=== PATIENT | female | born 1930 | race Caucasian/White ===

== ENCOUNTER 2016-03-03 19:56 | Inpatient (IN) | payer MEDICARE ==
[~2016-03-03] VITALS: Ht 160 cm; Wt 88.1 kg
[2016-03-04] MEDS ORDERED: SODIUM CHLORIDE 0.9% 1,000 ML ONE ×2 (00:47→03:22)
[2016-03-04] MEDS ORDERED: SODIUM CHLORIDE 0.9% 1,000 ML IV SCH (01:20)
[2016-03-04] MEDS ORDERED: SALINE FLUSH 10 ML FLUSH PRN (01:20)
[2016-03-04 03:00] VITALS: BP_SYST 140; RESP 18; TEMP 96.8
[2016-03-04] MEDS: SALINE FLUSH 10 ML FLUSH SCH ×3 (04:13→22:14)
[2016-03-04] MEDS: METRONIDAZOLE 500MG/100ML 100 ML IV SCH ×4 (04:14→17:30)
[2016-03-04 05:27] VITALS: Ht 160 cm; Wt 88.1 kg
[2016-03-04] MEDS: SODIUM CHLORIDE 0.9% FLUSH BAG 500 ML IV SCH (05:43)
[2016-03-04] MEDS: LEVOTHYROXINE 0.088 MG TAB PO SCH (06:14)
[2016-03-04] MEDS: SUCRALFATE 1 GM TAB PO SCH ×4 (06:14→21:00)
[2016-03-04 07:27] VITALS: BP_SYST 138; RESP 16; TEMP 96.8
[2016-03-04] MEDS: AMIODARONE 200 MG TAB PO SCH (08:14)
[2016-03-04] MEDS: METOPROLOL TART 25 MG TAB PO SCH ×2 (08:14→22:14)
[2016-03-04] MEDS ORDERED: CEFTRIAXONE 1 GM in SODIUM CHLORIDE 0.9% 50 ML IV SCH (09:00)
[2016-03-04 10:57] VITALS: BP_SYST 108; RESP 16; TEMP 97.5
[2016-03-04] MEDS: SODIUM CHLORIDE 0.9% 1,000 ML IV SCH (14:44)
[2016-03-04 15:24] VITALS: BP_SYST 124; RESP 18; TEMP 97.4
[2016-03-04] MEDS: METRONIDAZOLE 500 MG TAB PO SCH ×2 (17:40→22:14)
[2016-03-04 20:21] VITALS: BP_SYST 110; RESP 18; TEMP 96.6
[2016-03-04] MEDS ORDERED: MISSING DOSE XX ONE (21:25)
[2016-03-04] MEDS: DOXEPIN 50 MG CAP PO SCH (22:14)
[2016-03-04 22:36] VITALS: BP_SYST 130; RESP 16; TEMP 96
[2016-03-04] MEDS: ACETAMINOPHEN 325 MG TAB PO PRN (22:50)
[2016-03-05] MEDS: SODIUM CHLORIDE 0.9% 1,000 ML IV SCH (02:16)
[2016-03-05 02:51] VITALS: BP_SYST 138; RESP 18; TEMP 97.9
[2016-03-05] MEDS: SODIUM CHLORIDE 0.9% FLUSH BAG 500 ML IV SCH (05:15)
[2016-03-05] MEDS: LEVOTHYROXINE 0.088 MG TAB PO SCH (05:15)
[2016-03-05] MEDS: SUCRALFATE 1 GM TAB PO SCH ×6 (05:32→20:29)
[2016-03-05 07:00] VITALS: BP_SYST 142; RESP 20; TEMP 97.6
[2016-03-05] MEDS: METRONIDAZOLE 500 MG TAB PO SCH ×3 (09:25→20:29)
[2016-03-05] MEDS: SALINE FLUSH 10 ML FLUSH SCH ×2 (09:25→20:28)
[2016-03-05] MEDS: AMIODARONE 200 MG TAB PO SCH (09:26)
[2016-03-05] MEDS: METOPROLOL TART 25 MG TAB PO SCH ×2 (09:26→20:29)
[2016-03-05 12:06] VITALS: BP_SYST 136; RESP 18; TEMP 97.8
[2016-03-05 15:00] VITALS: BP_SYST 136; RESP 18; TEMP 96.4
[2016-03-05 19:55] VITALS: BP_SYST 132; RESP 20; TEMP 97.1
[2016-03-05] MEDS: DOXEPIN 50 MG CAP PO SCH (20:29)
[2016-03-05 23:29] VITALS: BP_SYST 124; RESP 18; TEMP 98
[2016-03-06 03:02] VITALS: BP_SYST 130; RESP 18; TEMP 97.3
[2016-03-06] MEDS: ONDANSETRON 4 MG VIAL IV PRN (03:08)
[2016-03-06] MEDS: SODIUM CHLORIDE 0.9% FLUSH BAG 500 ML IV SCH (04:39)
[2016-03-06] MEDS: SUCRALFATE 1 GM TAB PO SCH ×4 (05:23→14:13)
[2016-03-06] MEDS: LEVOTHYROXINE 0.088 MG TAB PO SCH (05:50)
[2016-03-06 07:10] VITALS: BP_SYST 110; RESP 20; TEMP 97.5
[2016-03-06] MEDS: AMIODARONE 200 MG TAB PO SCH ×3 (08:46→09:00)
[2016-03-06] MEDS: METRONIDAZOLE 500 MG TAB PO SCH ×5 (08:46→23:14)
[2016-03-06] MEDS: METOPROLOL TART 25 MG TAB PO SCH ×2 (08:47→08:51)
[2016-03-06] MEDS: SALINE FLUSH 10 ML FLUSH SCH ×2 (08:47→23:15)
[2016-03-06 11:47] VITALS: BP_SYST 120; RESP 20; TEMP 97.9
[2016-03-06 14:50] VITALS: BP_SYST 132; RESP 20; TEMP 96.9
[2016-03-06 20:11] VITALS: BP_SYST 112; RESP 20; TEMP 97.9
[2016-03-06 23:00] VITALS: BP_SYST 122; RESP 20; TEMP 99.1
[2016-03-06] MEDS: FAMOTIDINE 20 MG TAB PO SCH (23:13)
[2016-03-06] MEDS: LACTOBACILLUS ACIDOPH CAP PO SCH (23:14)
[2016-03-06] MEDS: DOXEPIN 50 MG CAP PO SCH (23:15)
[2016-03-06] MEDS: TRAMADOL 50 MG TAB PO PRN (23:15)
[2016-03-07] MEDS: ONDANSETRON 4 MG VIAL IV PRN ×2 (01:57→14:32)
[2016-03-07] MEDS ORDERED: Furosemide 20 MG/2 ML VIAL IV ONE (02:40)
[2016-03-07] MEDS ORDERED: Furosemide 40 MG/4 ML VIAL ONE (02:43)
[2016-03-07 03:24] VITALS: BP_SYST 112; RESP 20; TEMP 98.2
[2016-03-07] MEDS: ACETAMINOPHEN 325 MG TAB PO PRN (04:32)
[2016-03-07] MEDS: SODIUM CHLORIDE 0.9% FLUSH BAG 500 ML IV SCH (05:52)
[2016-03-07] MEDS: SUCRALFATE 1 GM TAB PO SCH ×2 (05:52→10:53)
[2016-03-07] MEDS: LEVOTHYROXINE 0.088 MG TAB PO SCH (06:03)
[2016-03-07 08:19] VITALS: BP_SYST 118; RESP 20; TEMP 96.6
[2016-03-07] MEDS: FAMOTIDINE 20 MG TAB PO SCH ×4 (08:38→21:31)
[2016-03-07] MEDS: AMIODARONE 200 MG TAB PO SCH ×3 (08:38→11:53)
[2016-03-07] MEDS: METOPROLOL TART 25 MG TAB PO SCH ×4 (08:38→21:31)
[2016-03-07] MEDS: SALINE FLUSH 10 ML FLUSH SCH ×2 (08:38→21:32)
[2016-03-07] MEDS: LACTOBACILLUS ACIDOPH CAP PO SCH ×4 (08:38→21:31)
[2016-03-07] MEDS: METRONIDAZOLE 500 MG TAB PO SCH ×5 (08:38→21:31)
[2016-03-07] MEDS ORDERED: MISSING DOSE XX ONE (10:55)
[2016-03-07 12:20] VITALS: BP_SYST 110; RESP 20; TEMP 97.5
[2016-03-07] MEDS: SPIRONOLACTONE 25 MG TAB PO SCH (13:04)
[2016-03-07] MEDS: Furosemide 40 MG TAB PO SCH (13:05)
[2016-03-07 14:40] VITALS: BP_SYST 106; RESP 20; TEMP 97
[2016-03-07 19:23] VITALS: BP_SYST 126; RESP 20; TEMP 97.4
[2016-03-07] MEDS: DOXEPIN 50 MG CAP PO SCH (21:31)
[2016-03-07 23:27] VITALS: RESP 18; TEMP 97.4
[2016-03-08 04:03] VITALS: BP_SYST 116; RESP 16; TEMP 97.8
[2016-03-08] MEDS: SODIUM CHLORIDE 0.9% FLUSH BAG 500 ML IV SCH (05:58)
[2016-03-08] MEDS: LEVOTHYROXINE 0.088 MG TAB PO SCH (05:58)
[2016-03-08] MEDS: SPIRONOLACTONE 25 MG TAB PO SCH ×2 (10:25→12:41)
[2016-03-08] MEDS: LACTOBACILLUS ACIDOPH CAP PO SCH ×3 (10:25→22:11)
[2016-03-08] MEDS: METRONIDAZOLE 500 MG TAB PO SCH ×4 (10:25→22:11)
[2016-03-08] MEDS: SALINE FLUSH 10 ML FLUSH SCH ×2 (10:25→22:10)
[2016-03-08] MEDS: AMIODARONE 200 MG TAB PO SCH ×2 (10:25→12:40)
[2016-03-08] MEDS: FAMOTIDINE 20 MG TAB PO SCH ×3 (10:26→22:11)
[2016-03-08] MEDS: METOPROLOL TART 25 MG TAB PO SCH ×3 (10:26→22:13)
[2016-03-08] MEDS: Furosemide 40 MG TAB PO SCH ×2 (10:26→12:40)
[2016-03-08] MEDS: ACETAMINOPHEN 325 MG TAB PO PRN (12:42)
[2016-03-08 12:48] VITALS: BP_SYST 158; RESP 18; TEMP 98
[2016-03-08 14:02] VITALS: BP_SYST 146; RESP 18; TEMP 98.6
[2016-03-08 20:37] VITALS: BP_SYST 124; RESP 18; TEMP 96.1
[2016-03-08] MEDS: DOXEPIN 50 MG CAP PO SCH (22:10)
[2016-03-08] MEDS: TRAMADOL 50 MG TAB PO PRN (22:14)
[2016-03-09 00:38] VITALS: BP_SYST 130; RESP 18; TEMP 97.4
[2016-03-09] MEDS: SODIUM CHLORIDE 0.9% FLUSH BAG 500 ML IV SCH (05:02)
[2016-03-09] MEDS: LEVOTHYROXINE 0.088 MG TAB PO SCH (06:07)
[2016-03-09 07:54] VITALS: BP_SYST 128; RESP 22; TEMP 98.4
[2016-03-09] MEDS: METOPROLOL TART 25 MG TAB PO SCH (10:41)
[2016-03-09] MEDS: SALINE FLUSH 10 ML FLUSH SCH (10:41)
[2016-03-09] MEDS: AMIODARONE 200 MG TAB PO SCH (10:41)
[2016-03-09] MEDS: SPIRONOLACTONE 25 MG TAB PO SCH (10:42)
[2016-03-09] MEDS: LACTOBACILLUS ACIDOPH CAP PO SCH (10:42)
[2016-03-09] MEDS: METRONIDAZOLE 500 MG TAB PO SCH ×2 (10:42→18:23)
[2016-03-09] MEDS: FAMOTIDINE 20 MG TAB PO SCH (10:42)
[2016-03-09] MEDS: Furosemide 40 MG TAB PO SCH (10:42)
[2016-03-09 11:33] VITALS: BP_SYST 132; RESP 20; TEMP 98.2
[2016-03-09 17:47] VITALS: BP_SYST 140; RESP 22; TEMP 97.1
[2016-03-09] MEDS ORDERED: SODIUM CHLORIDE 0.9% 500 ML IV ONE (20:45)
[2016-03-09 21:38] VITALS: BP_SYST 123; RESP 20; TEMP 97.1
[2016-03-09 21:41] VITALS: BP_SYST 123; RESP 20; TEMP 98.7
== END 2016-03-09 23:01 | disposition short-term general hospital (02) | DRG 372 ==
LOC: ENRESERVDT → ENRESERVTM → ER 19:56 → EMR 19:57 → 4NT 03-04 03:47 → ENPENDDIS 03-04 15:32 → DELPENDDIS 03-04 15:32 → OBSVTOIN 03-04 15:32
PROVIDERS: ADMIT Internal Medicine; ATTEND Internal Medicine
DX: A04.7 Enterocolitis due to Clostridium difficile (principal); R47.01 Aphasia; G62.9 Polyneuropathy, unspecified; I48.2 Chronic atrial fibrillation; N18.3 Chronic kidney disease, stage 3 (moderate); E03.9 Hypothyroidism, unspecified; I12.9 Hypertensive chronic kidney disease with stage 1 through stage 4 chronic kidney disease, or unspecified chronic kidney disease; E86.0 Dehydration; E86.1 Hypovolemia; I25.10 Atherosclerotic heart disease of native coronary artery without angina pectoris; R60.0 Localized edema; Z95.0 Presence of cardiac pacemaker; R53.1 Weakness; I25.2 Old myocardial infarction; K21.9 Gastro-esophageal reflux disease without esophagitis; M19.90 Unspecified osteoarthritis, unspecified site; Z96.641 Presence of right artificial hip joint; Z79.01 Long term (current) use of anticoagulants
CPT/HCPCS: 36415; 36600; 70450; 71010; 80048; 80051; 80053; 81001; 82330; 82553; 82803; 82947; 83690; 83880; 84439; 84443; 84484; 85025; 85610; 87040; 87045; 87046; 87493; 96360; 96361; 99219; 99232; 99233